=== PATIENT | male | born 1980 | race Caucasian/White ===

== ENCOUNTER 2017-01-09 14:01 | Emergency (ER) | payer SELFPAY ==
[~2017-01-09] VITALS: Ht 170.2 cm; Wt 99.0 kg
[~2017-01-09 14:01] MED LIST: MECL25TA2 PO; NAPR-688 PO
[2017-01-09 14:15] VITALS: Ht 170.2 cm; Wt 99.0 kg
== END 2017-01-09 22:15 | disposition left against medical advice (07) ==
LOC: E/R 14:01
DX: Z53.21 Procedure and treatment not carried out due to patient leaving prior to being seen by health care provider (principal)